=== PATIENT | male | born 1945 | race Caucasian/White ===

== ENCOUNTER → 2024-10-06 14:46 | Outpatient (BNVA) | payer MEDICARE, SELFPAY | PROVIDERS: Visit Provider Emergency Medicine | DX: M13.832 Other specified arthritis, left wrist (principal) | CPT/HCPCS: 73110 ==

== ENCOUNTER 2024-12-08 06:00 | Outpatient (RCR) | payer MEDICARE, SELFPAY | END 2025-01-04 23:59 | disposition home or self-care (01) | LOC: MPT 06:00 | PROVIDERS: Visit Provider Neurological Surgery | DX: M50.20 Other cervical disc displacement, unspecified cervical region (principal); M50.30 Other cervical disc degeneration, unspecified cervical region; M48.02 Spinal stenosis, cervical region | CPT/HCPCS: 97110; 97140; 97162; G0283 ==

== ENCOUNTER 2025-01-05 06:30 | Outpatient (RCR) | payer MEDICARE, SELFPAY | END 2025-02-04 23:59 | disposition home or self-care (01) | LOC: MPT 06:30 | PROVIDERS: Visit Provider Neurological Surgery | DX: M50.30 Other cervical disc degeneration, unspecified cervical region (principal) | CPT/HCPCS: 97110; 97140; G0283 ==